=== PATIENT | male | born 1995 | race Caucasian/White ===

== ENCOUNTER 2019-03-06 15:51 | Emergency (ER) | payer BC ==
[~2019-03-06] VITALS: Ht 167.6 cm; Wt 72.1 kg
[2019-03-06 15:58] VITALS: Ht 167.6 cm; Wt 72.1 kg
[2019-03-06 18:14] VITALS: BP 125/71
== END 2019-03-06 18:14 | disposition home or self-care (01) ==
LOC: ED 15:51
DX: J11.1 Influenza due to unidentified influenza virus with other respiratory manifestations (principal); K13.0 Diseases of lips